=== PATIENT | male | born 1970 | race Caucasian/White ===

== ENCOUNTER 2018-06-20 20:20 | Emergency (ER) | payer BC ==
[2018-06-20] MEDS ORDERED: KETOROLAC 60 MG/2 ML VIAL IM STA (20:36)
[2018-06-20] MEDS ORDERED: DIAZEPAM 5 MG TABLET PO ONE (20:36)
--- NOTE | 2018-06-20 20:42 | Emergency Department Record ---
History of Present Illness - General Chief Complaint: Neck Injury/Pain Stated Complaint: NECK AND SHOULDER PAIN OVER A MONTH Time Seen by Provider: 06/20/18 20:36 Source: Patient Mode of Arrival: Ambulatory Limitations: No limitations - History of Present Illness Initial Comments: 47 yo female presents to ED for evaluation of left sided neck and shoulder pain symptoms that have worsened over the past 1 month. Patient reports seeing her PCP twice for his symptoms, has been participating in PT and taking muscle relaxers without improvement in his symptoms. Patient denies injury or trauma, reports that hsi pain symptoms worsen with lowering of the left upper extremity , improves with elevation of the shoulder above his head. Patient denies extremity weakness, numbness, or tingling symptoms. Patient denies health problems at his baseline. MD Complaint: Neck pain Onset/Timin -: Days(s) Place: Home Radiation: Left shoulder, Upper back Severity: Moderate Severity scale (1-10): 8 Quality: Sharp Consistency: Constant, Intermittent, Getting worse Improves With: Medication OTC/prescribed Worsens With: Movement of neck Context: Unknown Associated Symptoms: None Treatments Prior to Arrival: Acetaminophen, Ibuprofen, Prescription pain med, Cold therapy, Heat therapy - Related Data Home Medications Medication Instructions Recorded Confirmed Last Taken Tizanidine HCl [Zanaflex] 4 mg PO QID 06/20/18 06/20/18 06/20/18 18:00 Previous Rx's Medication Instructions Recorded Epinephrine [Epipen] 0.3 mg IM ASDIR PRN #2 syr 08/02/16 Allergies Allergy/AdvReac Type Severity Reaction Status Date / Time venom-honey bee Allergy Severe ANAPHYLAXIS Verified 06/20/18 20:23 [bee venom (honey bee)] Travel Screening - Travel/Exposure Within Last 30 Days Have you traveled within the last 30 days?: No - Travel/Exposure Within Last Year Have you traveled outside the [place] in the last year?: No - Additonal Travel Details Have you been exposed to anyone with a communicable illness?: No - Travel Symptoms Symptom Screening: None Review of Systems Constitutional: Denies: Chills, Fever, Malaise, Night sweats Eyes: Denies: Eye discharge, Eye pain ENT: Denies: Congestion, Ear pain, Epistaxis Respiratory: Denies: Cough, Dyspnea Cardiovascular: Denies: Chest pain, Dyspnea on exertion Endocrine: Denies: Fatigue, Heat or cold intolerance Gastrointestinal: Denies: Abdominal pain, Nausea, Vomiting Genitourinary: Denies: Incontinence, Retention Musculoskeletal: Reports: Neck pain. Denies: Arthralgia, Back pain, Gout Skin: Denies: Bruising, Change in color Neurological: Denies: Abnormal gait, Confusion, Headache, Seizure Psychiatric: Denies: Anxiety Hematological/Lymphatic: Denies: Anemia, Blood Clots Past Medical History - SOCIAL HISTORY Smoking Status: Former smoker Alcohol Use: Occasional Drug Use: None - RESPIRATORY Hx Respiratory Disorders: No - CARDIOVASCULAR Hx Cardio Disorders: No - NEURO Hx Neuro Disorders: No - GI Hx GI Disorders: No - Hx Genitourinary Disorders: No - ENDOCRINE Hx Endocrine Disorders: No - MUSCULOSKELETAL Hx Musculoskeletal Disorders: Yes Comment:: neck pain - PSYCH Hx Psych Problems: No - HEMATOLOGY/ONCOLOGY Hx Hematology/Oncology Disorders: No Family Medical History Any Significant Family History?: No Physical Exam - General General Appearance: Alert, Oriented x3, Cooperative, Moderate distress (due to patient's pain symptoms) Limitations: No limitations - Head Head exam: Atraumatic, Normocephalic, Normal inspection Head exam detail: negative: Abrasion, Contusion, Robles's sign, General tenderness, Hematoma, Laceration - Eye Eye exam: Normal appearance. negative: Conjunctival injection, Periorbital swelling, Periorbital tenderness, Scleral icterus - ENT Ear exam: negative: Auricular hematoma, Auricular trauma Nasal Exam: negative: Active bleeding, Discharge, Dried blood, Foreign body Mouth exam: negative: Drooling, Laceration, Muffled voice, Tongue elevation - Neck Neck exam: Other (Pain with extension of the neck, no paravertebral spasm present on examination.) - Respiratory Respiratory exam: Normal lung sounds bilaterally. negative: Rales, Respiratory distress, Rhonchi, Stridor - Cardiovascular Cardiovascular Exam: Regular rate, Normal rhythm, Normal heart sounds - GI/Abdominal GI/Abdominal exam: Soft. negative: Rebound, Rigid, Tenderness - Rectal Rectal exam: Deferred - exam: Deferred - Extremities Extremities exam: Normal inspection, Other (Strong distal radial pulse, security and privacy consultant strength 5/5 on examination.). negative: Calf tenderness, Pedal edema, Tenderness - Back Back exam: Denies: CVA tenderness (R), CVA tenderness (L) - Neurological Neurological exam: Alert, Normal gait, Oriented X3 - Psychiatric Psychiatric exam: Normal affect, Normal mood - Skin Skin exam: Normal color. negative: Abrasion Type of lesion: negative: abrasion Course Vital Signs 06/20/18 20:25 Temperature 98.1 F Pulse Rate 74 Respiratory 18 Rate Blood Pressure 129/76 Pulse Ox 98 - Reevaluation(s) Reevaluation #1: 06/20/18 21:27 CT Cervical Spine: Mild DJD No fracture, subluxation. Patient was updated on his results, reports very little improvement in his pain symptoms. Patient has no evidence for spinal cord compression syndrome on examination. Recommended calling his PCP tomorrow morning for further evaluation (MRI). Patient agrees with the plan of care as discussed. Disposition Disposition: Discharge Clinical Impression: Cervical radiculopathy Disposition: Home, Self-Care Condition: (2) Stable Instructions: Cervical Radiculopathy (ED) Additional Instructions: Return to ED if your symptoms worsen or if you have any concerns. Continue Zanaflex as prescribed. Follow-up with your family doctor in 1-3 days as directed. Discuss possible MRI of the cervical spine with your family doctor for further evaluation of your neck pain symptoms. Forms: Patient Portal Access Time of Disposition: 21:35 Quality - Quality Measures Quality Measures: N/A - Blood Pressure Screening Does Patient Have Any of the Following: No Blood Pressure Classification: Pre-Hypertensive BP Reading Systolic Measurement: 129 Diastolic Measurement: 76 Screening for High Blood Pressure: < Pre-Hypertensive BP, F/U Documented > [ G8950] Pre-Hypertensive Follow-up Interventions: Referral to alternative/primary care provider.
--- NOTE | 2018-06-22 07:13 | CT SCAN REPORT ---
EXAM: CT OF THE CERVICAL SPINE WITHOUT CONTRAST HISTORY: NECK PAIN. TECHNIQUE: Sequential axial images were obtained through the cervical spine without intravenous contrast administration. Sagittal and coronal reformatted images were performed. FINDINGS: There is no evidence of fracture, subluxation or perched facet. The lateral masses are well aligned. There is degenerative change at C5-C6 and C6- C7 levels. IMPRESSION: 1. NO EVIDENCE OF FRACTURE, SUBLUXATION, OR PERCHED FACET. 2. MILD MULTILEVEL DEGENERATIVE CHANGE. JOB NUMBER: [id number] MTDD
== END 2018-06-20 21:48 | disposition home or self-care (01) ==
LOC: ER 20:20
DX: M54.12 Radiculopathy, cervical region (principal); M25.512 Pain in left shoulder; Z87.891 Personal history of nicotine dependence
CPT/HCPCS: 99283; 96372; 99284; 72125; J3490; J1885

== ENCOUNTER 2018-06-24 04:40 | Emergency (ER) | payer BC ==
[2018-06-24] MEDS ORDERED: HYDROMORPHONE HCL 2 MG/ML VIAL IM ONE (05:04)
[2018-06-24] MEDS ORDERED: ONDANSETRON 4 MG ODT TABLET SL ONE (05:08)
--- NOTE | 2018-06-24 05:10 | Emergency Department Record ---
History of Present Illness - General Chief Complaint: Neck Injury/Pain Stated Complaint: MUSCLE SPASMS Time Seen by Provider: 06/24/18 05:04 Source: Patient Mode of Arrival: Ambulatory Limitations: No limitations - History of Present Illness Initial Comments: 47 yo male presents to ED for evaluation of continued pain to the left neck and shoulder. Patient's symptoms have been present for the past 1 month, and patient has been participating in PT without significant improvement in his symptoms. Patient was taking some muscle relaxers that mildly improved his symptoms. Patient denies denies specific injury or trauma, and patient denies fevers, chills, or redness to the area. Patient has been trying to get his PCP to order an MRI without success. MD Complaint: Neck pain Onset/Timin -: Month(s) Place: Other Radiation: Left shoulder, Left upper extremity Severity: Severe Severity scale (1-10): 9 Quality: Aching, Stabbing Consistency: Constant, Getting worse Improves With: None Worsens With: None Context: Unknown Associated Symptoms: None Treatments Prior to Arrival: None - Related Data Previous Rx's Medication Instructions Recorded Epinephrine [Epipen] 0.3 mg IM ASDIR PRN #2 syr 08/02/16 Hydrocodone/Acetaminophen [Lacrosse 1 each PO Q6H PRN #15 tablet 06/24/18 7.5-325 Tablet] Allergies Allergy/AdvReac Type Severity Reaction Status Date / Time venom-honey bee Allergy Severe ANAPHYLAXIS Verified 06/20/18 20:23 [bee venom (honey bee)] Travel Screening - Travel/Exposure Within Last 30 Days Have you traveled within the last 30 days?: No - Travel Symptoms Symptom Screening: None Review of Systems Constitutional: Denies: Chills, Fever, Malaise, Night sweats Eyes: Denies: Eye discharge, Eye pain ENT: Denies: Congestion, Ear pain, Epistaxis Respiratory: Denies: Cough, Dyspnea Cardiovascular: Denies: Chest pain, Dyspnea on exertion Endocrine: Denies: Fatigue, Heat or cold intolerance Gastrointestinal: Denies: Abdominal pain, Nausea, Vomiting Genitourinary: Denies: Incontinence, Retention Musculoskeletal: Denies: Arthralgia, Back pain Skin: Denies: Bruising, Change in color Neurological: Denies: Abnormal gait, Confusion, Headache, Seizure Psychiatric: Denies: Anxiety Hematological/Lymphatic: Denies: Anemia, Blood Clots Past Medical History - SOCIAL HISTORY Smoking Status: Former smoker Alcohol Use: None Drug Use: None - RESPIRATORY Hx Respiratory Disorders: No - CARDIOVASCULAR Hx Cardio Disorders: No - NEURO Hx Neuro Disorders: No - GI Hx GI Disorders: No - Hx Genitourinary Disorders: No - ENDOCRINE Hx Endocrine Disorders: No - MUSCULOSKELETAL Hx Musculoskeletal Disorders: Yes Comment:: neck pain - PSYCH Hx Psych Problems: No - HEMATOLOGY/ONCOLOGY Hx Hematology/Oncology Disorders: No Family Medical History Any Significant Family History?: No Physical Exam - General General Appearance: Alert, Oriented x3, Cooperative, Moderate distress (due to his pain symtpoms) Limitations: No limitations - Head Head exam: Atraumatic, Normocephalic, Normal inspection Head exam detail: negative: Abrasion, Contusion, Robles's sign, General tenderness, Hematoma, Laceration - Eye Eye exam: Normal appearance. negative: Conjunctival injection, Periorbital swelling, Periorbital tenderness, Scleral icterus - ENT Ear exam: negative: Auricular hematoma, Auricular trauma Nasal Exam: negative: Active bleeding, Discharge, Dried blood, Foreign body Mouth exam: negative: Drooling, Laceration, Muffled voice, Tongue elevation - Neck Neck exam: negative: Meningismus, Tenderness - Respiratory Respiratory exam: Normal lung sounds bilaterally. negative: Rales, Respiratory distress, Rhonchi, Stridor - Cardiovascular Cardiovascular Exam: Regular rate, Normal rhythm, Normal heart sounds Peripheral Pulses: 3+: Radial (L) - GI/Abdominal GI/Abdominal exam: Soft. negative: Rebound, Rigid, Tenderness - Rectal Rectal exam: Deferred - exam: Deferred - Extremities Extremities exam: Normal inspection, Other (Commis Chef strength 5/5 and symmetric). negative: Calf tenderness, Pedal edema, Tenderness - Back Back exam: Denies: CVA tenderness (R), CVA tenderness (L) - Neurological Neurological exam: Alert, Normal gait, Oriented X3 - Psychiatric Psychiatric exam: Normal affect, Normal mood - Skin Skin exam: Normal color. negative: Abrasion Type of lesion: negative: abrasion Course Vital Signs 06/24/18 04:47 Temperature 97.6 F Pulse Rate [ 77 Pulse Ox Probe] Respiratory 20 Rate Blood Pressure 133/93 [Left Arm] Pulse Ox 99 - Reevaluation(s) Reevaluation #1: 06/24/18 05:14 CT Cervical Spine: Mild DJD No fracture or subluxation Patient was seen and examined, left director of purchasing strength remains 5/5, and there continues to be no evidence for spinal cord compression syndrome. Will administer Dilaudid and reassess. Reevaluation #2: 06/24/18 05:50 Patient reassessed and reports significant improvement in his symptoms. Will prescribe a short course of Lacrosse for ongoing symptoms with instructions to follow-up with his PCP for further evaluation. Disposition Disposition: Discharge Clinical Impression: Cervical radiculopathy Disposition: Home, Self-Care Condition: (2) Stable Instructions: Cervical Sprain (ED) Additional Instructions: Return to ED if your symptoms worsen or if you have any concerns. Lacrosse as directed. Follow-up with your family doctor in 3-5 days as directed. Prescriptions: Hydrocodone/Acetaminophen [Lacrosse 7.5-325 Tablet] 1 each PO Q6H PRN #15 tablet PRN Reason: Pain - Mod To Severe (5-10) Forms: Patient Portal Access Time of Disposition: 05:54 Quality - Quality Measures Quality Measures: N/A - Blood Pressure Screening Does Patient Have Any of the Following: No Blood Pressure Classification: Pre-Hypertensive BP Reading Systolic Measurement: 114 Diastolic Measurement: 83 Screening for High Blood Pressure: < Pre-Hypertensive BP, F/U Documented > [ G8950] Pre-Hypertensive Follow-up Interventions: Referral to alternative/primary care provider.
== END 2018-06-24 06:05 | disposition home or self-care (01) ==
LOC: ER 04:40
DX: M54.12 Radiculopathy, cervical region (principal); M25.512 Pain in left shoulder; Z87.891 Personal history of nicotine dependence
CPT/HCPCS: 99283 ×2; 96372; J1170